=== PATIENT | female | born 1950 | race Caucasian/White ===

== ENCOUNTER → 2021-06-06 | Day surgery (SDC) | payer MEDICARE ==
[2021-06-04 10:58] VITALS: BMI 27.4
== END ==
LOC: SDC/OP 11:38
PROVIDERS: ATTEND Nurse Practitioner Family
DX: S22.080A Wedge compression fracture of T11-T12 vertebra, initial encounter for closed fracture (principal); Z53.9 Procedure and treatment not carried out, unspecified reason